=== PATIENT | female | born 1995 | race Caucasian/White ===

== ENCOUNTER 2022-08-04 00:40 | Emergency (ER) | payer BC ==
[~2022-08-04] VITALS: Ht 157.5 cm; Wt 97.5 kg
[2022-08-04 00:45] VITALS: BP 153/125
[2022-08-04] MEDS ORDERED: IPRATROPIUM NEB FS 0.5 MG/2.5 ML AMPUL.NEB ONE (00:54)
[2022-08-04] MEDS ORDERED: ALBUTEROL FS 2.5 MG/3 ML VIAL.NEB ONE (00:54)
[2022-08-04] MEDS ORDERED: predniSONE 20 MG TABLET ONE (00:56)
--- NOTE | 2022-08-04 00:58 | NUR ---
RT AT BED SIDE FOR BREATHING TREATMENT
[2022-08-04] MEDS ORDERED: predniSONE 20 MG TABLET PO ONE (01:00)
[2022-08-04] MEDS ORDERED: IPRATROPIUM NEB FS 0.5 MG/2.5 ML AMPUL.NEB NEB ONE (01:00)
[2022-08-04] MEDS ORDERED: ALBUTEROL FS 2.5 MG/3 ML VIAL.NEB NEB ONE (01:00)
[2022-08-04] MEDS ORDERED: PRED20TA PO (02:05)
[2022-08-04] MEDS ORDERED: ALBU18HF2 INH (02:05)
== END 2022-08-04 02:11 | disposition home or self-care (01) ==
LOC: ER 00:48
DX: J45.901 Unspecified asthma with (acute) exacerbation (principal); I10 Essential (primary) hypertension; J45.909 Unspecified asthma, uncomplicated
CPT/HCPCS: 99285; 94644; J7512

== ENCOUNTER 2024-08-30 16:05 | Emergency (ER) | payer BC ==
[~2024-08-30] VITALS: Ht 157.5 cm; Wt 106.1 kg
[2024-08-30 07:19] VITALS: O2SAT 98
[~2024-08-30 16:05] MED LIST: ALBU18HF2 INH; PRED20TA PO
[2024-08-30] MEDS ORDERED: ALBUTEROL FS 2.5 MG/0.5 ML VIAL.NEB ONE (16:58)
[2024-08-30] MEDS ORDERED: methylPREDNISolone SOD SUCC 125 MG/2ML VIAL ONE (16:59)
[2024-08-30] MEDS ORDERED: IPRATROPIUM NEB FS 0.5 MG/2.5 ML AMPUL.NEB ONE (16:59)
[2024-08-30] MEDS ORDERED: ACETAMINOPHEN ES 500 MG TABLET ONE (16:59)
[2024-08-30] MEDS: ACETAMINOPHEN ES 500 MG TABLET PO ONE (17:00)
[2024-08-30] MEDS: methylPREDNISolone SOD SUCC 125 MG/2ML VIAL IV ONE (17:02)
[2024-08-30 17:04] VITALS: O2SAT 92
[2024-08-30] MEDS: IV NS 0.9% 1,000 ML BAG IV ONE ×2 (17:05→19:05)
[2024-08-30] MEDS: IV NS 0.9% 1,000 ML IV ONE (17:07)
[2024-08-30 17:30] LABS: BASOPHILS # (AUTO) 0.1 K/uL (0.0-0.2); BASOPHILS % (AUTO) 0.6 % (0.0-2.0); EOSINOPHILS # (AUTO) 0.6 K/uL (0.0-0.7); EOSINOPHILS % (AUTO) 3.4 % (0.0-6.0); HEMATOCRIT 43 % (33-45); HEMOGLOBIN 14.8 g/dL (11.5-14.8); LYMPHOCYTES # (AUTO) 1.8 K/uL (0.8-4.8); LYMPHOCYTES % (AUTO) 10.7 % (20.0-44.0); MEAN CORPUSCULAR HEMOGLOBIN 32 PG (26.0-33.0); MEAN CORPUSCULAR HGB CONC 35 g/dl (31.0-36.0); MEAN CORPUSCULAR VOLUME 90 fL (82-100); MONOCYTES # (AUTO) 1.1 K/uL (0.1-1.30); MONOCYTES % (AUTO) 6.4 % (2.0-12.0); NEUTROPHILS # (AUTO) 13.1 K/uL (1.8-8.9); NEUTROPHILS % (AUTO) 78.9 % (43.0-81.0); PLATELET COUNT (AUTO) 373 K/uL (150-450); RED BLOOD CELL COUNT(AUTO) 4.71 MIL/uL (4.0-5.2); RED CELL DISTRIBUTION WIDTH 12.5 % (11.5-15.0); WHITE BLOOD COUNT (AUTO) 16.6 K/uL (4.3-11.0)
[2024-08-30 17:36] LABS: CALCIUM, SERUM 8.7 mg/dL (8.5-10.1); CREATININE 0.7 mg/dL (0.6-1.3); POTASSIUM 3.6 mmol/L (3.5-5.1)
[2024-08-30 17:42] LABS: ALBUMIN 3.8 g/dL (3.4-5.0); BILIRUBIN,DIRECT 0.1 mg/dL (0.0-0.2); BILIRUBIN,TOTAL 0.6 mg/dL (0.2-1.0); TOTAL PROTEIN, SERUM 7.7 g/dL (6.4-8.2)
[2024-08-30] MEDS: IPRATROPIUM NEB FS 0.5 MG/2.5 ML AMPUL.NEB NEB ONE (17:47)
[2024-08-30] MEDS: ALBUTEROL FS 2.5 MG/0.5 ML VIAL.NEB NEB ONE (17:47)
[2024-08-30 18:54] VITALS: O2SAT 91
[2024-08-30] MEDS: ALBUTEROL FS 2.5 MG/3 ML VIAL.NEB NEB ONE (18:54)
[2024-08-30 18:56] VITALS: O2SAT 95
[2024-08-30 19:09] VITALS: O2SAT 99
[2024-08-30] MEDS ORDERED: ALBUTEROL FS 2.5 MG/3 ML VIAL.NEB ONE (19:40)
[2024-08-30] MEDS ORDERED: PRED20TA PO (19:59)
[2024-08-30 20:10] VITALS: BP 147/111; TEMP 98.9; O2SAT 99
== END 2024-08-30 20:10 | disposition home or self-care (01) ==
LOC: ER 16:12
DX: J45.901 Unspecified asthma with (acute) exacerbation (principal); J06.9 Acute upper respiratory infection, unspecified; B97.89 Other viral agents as the cause of diseases classified elsewhere; I10 Essential (primary) hypertension; Z79.52 Long term (current) use of systemic steroids; R00.0 Tachycardia, unspecified
CPT/HCPCS: 99285; 96374; 96361; 71045; 93005; 85025; 80048; 80076; 36415; 94640; J2919; J7030 ×2; A4223